=== PATIENT | female | born 1970 | race Caucasian/White ===

== ENCOUNTER 2025-01-28 06:03 | Observation (INO) ==
--- NOTE | 2024-12-22 15:27 | PAT Medication Instructions ---
Medication Instructions Date of Service December 22, 2024 Home Medications acetaminophen 500 mg tablet (Tylenol Extra Strength) 500 mg PO QID PRN Pain cholecalciferol (vitamin D3) 125 mcg (5,000 unit) tablet (Vitamin D3) 125 mcg PO BID gabapentin 300 mg capsule 300 mg PO TID hydrochlorothiazide 12.5 mg tablet 12.5 mg PO QAM ibuprofen 600 mg tablet 600 mg PO QID PRN Pain levothyroxine 112 mcg tablet 112 mcg PO QAM losartan 50 mg tablet 50 mg PO QAM meloxicam 7.5 mg tablet 7.5 mg PO BID tramadol 50 mg tablet 50 mg PO DAILY PRN Pain MEDICATION INSTRUCTIONS: ASK your surgeon for instructions meloxicam 7.5 mg tablet 7.5 mg PO BID ibuprofen 600 mg tablet 600 mg PO QID PRN Pain DO NOT take the morning of surgery cholecalciferol (vitamin D3) 125 mcg (5,000 unit) tablet (Vitamin D3) 125 mcg PO BID losartan 50 mg tablet 50 mg PO QAM hydrochlorothiazide 12.5 mg tablet 12.5 mg PO QAM Take morning of surgery With a small sip of water, OTHERWISE NOTHING TO EAT OR DRINK AFTER MIDNIGHT: acetaminophen 500 mg tablet (Tylenol Extra Strength) 500 mg PO QID PRN Pain gabapentin 300 mg capsule 300 mg PO TID levothyroxine 112 mcg tablet 112 mcg PO QAM tramadol 50 mg tablet 50 mg PO DAILY PRN Pain Take evening before surgery acetaminophen 500 mg tablet (Tylenol Extra Strength) 500 mg PO QID PRN Pain cholecalciferol (vitamin D3) 125 mcg (5,000 unit) tablet (Vitamin D3) 125 mcg PO BID gabapentin 300 mg capsule 300 mg PO TID tramadol 50 mg tablet 50 mg PO DAILY PRN Pain Other Notes If you have any questions please call us at [phone] or [phone] or [phone] or [phone]
--- NOTE | 2025-01-05 10:58 | Anesthesiology Consultation ---
Date of Service January 05, 2025 Assessment & Plan (1) Encounter for pre-operative examination: - Infectious disease screening: Per assessment on 01/05/25- No known recent infectious disease contacts or current infectious disease symptoms. - Possible difficult intubation: based on exam - Pending: * Preop labs: received message that patient's preop coags hemolyzed. Patient aware- requesting having preop coags done at [facility] outpatient labs- requests PAT fax coags order to both [facility] outpatient lab and PCP (Dr. Peguero). PAT loan secretary made aware/faxed orders per patient request. Awaiting surgeon-ordered preop coags (TBD [facility], 01/06). * Awaiting surgeon-ordered PCP preop evaluation (Dr. Peguero, appt done 01/06). Chart Review Chart Review: Patient seen in Pre Admission Testing Teaching & Discussion Pre-Anesthesia Teaching/Discussion Notes: Instructed NPO after midnight before surgery,except medications with 15 cc of water. Medication instructions provided according to the PAT guidelines. History Surgery Operation Date: 01/28/25 11:05 Proposed Procedures p C3-C5 Anterior Cervical Discectomy and Fusion, with Spinal Cord Monitoring - Neo Mccatrhy, Height/Weight Height: 5 ft 2 in Weight: 101.8 kg Allergies Allergy/AdvReac Type Severity Reaction Status Date / Time No Known Allergies Allergy Verified 12/22/24 11:38 Medications Home Medications Medication Instructions Recorded Confirmed Last Taken acetaminophen 500 mg tablet 500 mg PO QID PRN Pain 12/22/24 12/22/24 Unknown (Tylenol Extra Strength) cholecalciferol (vitamin D3) 125 125 mcg PO BID 12/22/24 12/22/24 Unknown mcg (5,000 unit) tablet (Vitamin D3) gabapentin 300 mg capsule 300 mg PO TID 12/22/24 12/22/24 Unknown hydrochlorothiazide 12.5 mg tablet 12.5 mg PO QAM 12/22/24 12/22/24 Unknown ibuprofen 600 mg tablet 600 mg PO QID PRN Pain 12/22/24 12/22/24 Unknown levothyroxine 112 mcg tablet 112 mcg PO QAM 12/22/24 12/22/24 Unknown losartan 50 mg tablet 50 mg PO QAM 12/22/24 12/22/24 Unknown meloxicam 7.5 mg tablet 7.5 mg PO BID 12/22/24 12/22/24 Unknown tramadol 50 mg tablet 50 mg PO DAILY PRN Pain 12/22/24 12/22/24 Unknown Past Medical History Medical History Cervical radiculopathy HTN (hypertension) Hypothyroidism Migraines Morbid obesity Sleep apnea No device Exercise / Class Metabolic Activity II 4-5 Yardwork/Stairs/Walk up hill (one FS: No CP, no SOB) Past Surgical History Surgical History History of carpal tunnel release of both wrists History of lumbar surgery hardware present Hx of cholecystectomy Hx of colonoscopy Hx of hysterectomy Past Anesthesia History No Hx of Anesthesia Complications and No Family Hx of Anesthesia Complications History of PONV No Hx of PONV and No Hx of Motion Sickness Social History Smoking Status: Never smoker Do You Dip or Chew Tobacco: No Hx Alcohol Use: No Hx Substance Use: No substance use type: does not use Review of Systems Patient denies chest pain, shortness of breath, dyspnea on exertion, fever, chills, cough, wheezing, palpitations. Physical Exam Vital Signs BP 133/88 P 83 TEMP 98.4 SP02 97%RA RESP 18 Physical Full cervical extension range of motion. Full TMJ range of motion. TMD 3 finger breaths Mallampati Score IV (small oral opening) Dentition: missing molar Lungs: clear throughout to auscultation Cardiac: regular rate and rhythm, no murmurs noted Spine: normal Carotid arteries: negative bruit Extremities: no LE edema Lab Results Anesthesia Preop Results Results Anesthesia Widget: WBC 7.49 K/ul (4.8-10.8) 01/05/25 Hgb 13.3 g/dl (12.0-16.0) 01/05/25 Hct 41.8 % (37.0-47.0) 01/05/25 Plt 193 K/uL (130-400) 01/05/25 Na 139 mmol/L (136-145) 01/05/25 K 4.3 mmol/L (3.5-5.1) 01/05/25 Cl 105 mmol/L (98-107) 01/05/25 CO2 28 mmol/L (21-32) 01/05/25 BUN 29 mg/dl (6-23) H 01/05/25 Creat 1.06 mg/dl (0.6-1.2) 01/05/25 Glucose Level 101 mg/dl (70-99(Fasting)) H 01/05/25 Urine Color Yellow 01/05/25 Urine Appearance Clear (Clear) 01/05/25 Urine pH 5.0 (4.5-7.5) 01/05/25 Urine Specific [place] 1.023 (1.000-1.030) 01/05/25 Urine Protein Negative (Negative) 01/05/25 Urine Glucose (UA) Negative (Negative) 01/05/25 Urine Ketones Trace (Negative) H 01/05/25 Urine Blood Negative (Negative) 01/05/25 Urine Nitrite Negative (Negative) 01/05/25 Urine Bilirubin Negative (Negative) 01/05/25 Urine Urobilinogen Negative (Negative) 01/05/25 Urine Leukocyte Esterase Negative (Negative) 01/05/25 Blood Type A Positive 01/05/25 Antibody Screen NEGATIVE 01/05/25 Testing Electrocardiogram Date: 01/05/25 Findings: + NSR @ (76) Chest X-Ray Date: 01/05/25 FINDINGS: The cardiac silhouette measures within normal limits. The hilar and mediastinal structures appear unremarkable. The lungs are clear. The osseous structures appear grossly intact. Surgical clips in the right upper abdominal quadrant. IMPRESSION: No evidence of acute cardiopulmonary disease, communicable disease or tuberculosis.
[2025-01-28] MEDS: LR 15ML/HR IV SCH (06:40)
[2025-01-28] MEDS: LR 60ML/HR IV SCH (06:40)
[2025-01-28] MEDS: CeleBREX 200 MG CAP PO SCH (06:41)
[2025-01-28] MEDS: ACETAMINOPHEN 500 MG TAB PO SCH (06:41)
[2025-01-28] MEDS: GABAPENTIN 900 MG DOSE PO SCH (06:41)
[2025-01-28] MEDS ORDERED: ONDANSETRON INJ 2 MG/ML 2 ML VIAL ONE ×2 (07:06→09:21)
[2025-01-28] MEDS ORDERED: LIDOCAINE 2% 2 ML VIAL/AMP(20MG/ML) INFIL ONE (07:06)
[2025-01-28] MEDS ORDERED: DEXAMETHASONE SOD INJ 4 MG/ML VIAL ONE (07:06)
[2025-01-28] MEDS ORDERED: PROPOFOL IV EMULSION 10 MG/ML 20 ML VIAL IV ONE ×2 (07:06)
[2025-01-28] MEDS ORDERED: fentaNYL citrate PF 100 MCG/2 ML VIAL ONE (07:07)
[2025-01-28] MEDS ORDERED: MIDAZOLAM HCL 1 MG/ML 2ML VIAL ONE (07:07)
[2025-01-28] MEDS ORDERED: PROPOFOL IV EMULSION 10 MG/ML 100 ML VIAL IV ONE (07:08)
[2025-01-28] MEDS ORDERED: ROCURONIUM BROMIDE 10 MG/ML 5 ML VIAL IV ONE (07:08)
[2025-01-28] MEDS ORDERED: LARYING-O-JET KIT (LTA) ONE (07:08)
[2025-01-28] MEDS ORDERED: SUCCINYLCHOLINE CHLORIDE 20 MG/ML 10 ML VIAL IV ONE (07:19)
[2025-01-28] MEDS ORDERED: LABETALOL HCL IV 5 MG/ML 20ML IV PRN (07:20)
[2025-01-28] MEDS ORDERED: ePHEDrine sulfate 50 MG/ML AMP IV PRN (07:20)
[2025-01-28] MEDS ORDERED: FLUMAZENIL 0.1 MG/1 ML 10 ML VIAL IV PRN (07:20)
[2025-01-28] MEDS ORDERED: ONDANSETRON INJ 2 MG/ML 2 ML VIAL IV PRN (07:20)
[2025-01-28] MEDS ORDERED: NALOXONE HCL 0.4 MG/1 ML VIAL/CARP IV PRN ×2 (07:20→12:42)
[2025-01-28] MEDS ORDERED: ATROPINE SULFATE 0.1 MG/ML 10ML SYR IV PRN (07:20)
[2025-01-28] MEDS ORDERED: PROMETHAZINE HCL 6.25 MG in SODIUM CHLORIDE 0.9% 50 ML IV PRN (07:20)
--- NOTE | 2025-01-28 07:30 | History & Physical Report ---
Date of Service January 28, 2025 Assessment & Plan (1) Cervical stenosis of spinal canal: Plan: Anterior cervical discectomy and fusion C3-C5 History of Present Illness Chief Complaint: Neck and arm pain Primary Care Provider: Paulino Peguero DO This is a 54-year-old female presents chronic persistent neck and arm pain and failing course of nonoperative care is here for surgical invention. Allergies Allergy/AdvReac Type Severity Reaction Status Date / Time No Known Allergies Allergy Verified 01/28/25 06:29 Home Medications Medication Instructions Recorded Confirmed Type acetaminophen 500 mg tablet 500 mg PO QID PRN Pain 12/22/24 01/28/25 History (Tylenol Extra Strength) cholecalciferol (vitamin D3) 125 125 mcg PO BID 12/22/24 01/28/25 History mcg (5,000 unit) tablet (Vitamin D3) gabapentin 300 mg capsule 300 mg PO TID 12/22/24 01/28/25 History hydrochlorothiazide 12.5 mg tablet 12.5 mg PO QAM 12/22/24 01/28/25 History ibuprofen 600 mg tablet 600 mg PO QID PRN Pain 12/22/24 01/28/25 History levothyroxine 112 mcg tablet 112 mcg PO QAM 12/22/24 01/28/25 History losartan 50 mg tablet 50 mg PO QAM 12/22/24 01/28/25 History meloxicam 7.5 mg tablet 7.5 mg PO BID 12/22/24 01/28/25 History tramadol 50 mg tablet 50 mg PO DAILY PRN Pain 12/22/24 01/28/25 History Past Med/Surg History Problem List (Updated 01/28/25 @ 07:30 by Neo Mccarthy DO) Cervical stenosis of spinal canal Encounter for pre-operative examination Medical History Cervical radiculopathy HTN (hypertension) Hypothyroidism Migraines Morbid obesity Sleep apnea No device Surgical History History of carpal tunnel release of both wrists History of lumbar surgery hardware present Hx of cholecystectomy Hx of colonoscopy Hx of hysterectomy Social History Smoking Status: Never smoker Second Hand Exposure: No; Do You Dip or Chew Tobacco: No; Tobacco Cessation Education Requested by Patient: No Hx Alcohol Use: No Hx Substance Use: No Preferred Language: Portuguese Communication Ability: Effective Office Coordinator Required: No Beliefs That Will Affect Care: None Current Living Situation: Spouse Other Information That Helps Us Care for You: No Feels Safe at Home: Yes Safety Concerns: Feels Safe At This Time Assistive Devices: Glasses Physical Exam Physical Exam: Patient is alert and oriented Heart regular rhythm Lungs clear Results & Data Results & Data Vital Signs (Past 12 Hours) Vital Signs Temp Pulse Resp BP Pulse Ox O2 Del Method 01/28/25 06:31 36.6 C 88 20 154/102 H 96 Room Air
--- NOTE | 2025-01-28 07:30 | History & Physical Bridge Note ---
Date of Service January 28, 2025 History & Physical Bridge Note I have examined the patient, reviewed the History & Physical and in the interval since the performance of the History & Physical I have noted the following changes of clinical significance: no changes noted
[2025-01-28] MEDS ORDERED: HYDROmorphone INJ 2 MG/ML SYR/VIAL ONE (07:58)
[2025-01-28] MEDS ORDERED: SODIUM CHLORIDE 0.9% PF INJ 10 ML VIAL ONE (07:58)
[2025-01-28] MEDS ORDERED: PHENYLEPHRINE 100MCG/ML 5ML SYR ONE (08:06)
[2025-01-28] MEDS: ceFAZolin 2000MG 2,000 MG/15 ML SYR IV SCH ×2 (08:24→17:02)
[2025-01-28] MEDS: ceFAZolin 330 MG/ML 1 GM VIAL ONE (08:25)
[2025-01-28] MEDS ORDERED: ePHEDrine sulfate 50 MG/5 ML SYR ONE (08:49)
[2025-01-28] MEDS ORDERED: SUGAMMADEX SODIUM 200 MG/2 ML VIAL IV ONE (08:56)
--- NOTE | 2025-01-28 09:24 | Operative Report ---
Post Operative Report Pre & Post Diagnosis Operation Date: 01/28/25 07:45 Pre-Op Diagnosis: Cervical spondylosis with radiculopathy Morbid obesity Post-Op Diagnosis: Same I identified the patient and participated in the time-out.: Yes Procedure Operation Date: 01/28/25 07:45 Actual Procedures #1 anterior cervical discectomy and bilateral foraminotomies C3-C4 C4-C5. #2 anterior cervical arthrodesis C3-C4 C4-C5. #3 placement of Spira 7 mm cage filled with os design bone graft C3-C4 C4-C5. #4 application of K2 and plate and screws from C3-C5. Surgeon Neo Mccarthy, DO Loan Specialist Cole Stallworth Estimated Blood Loss 20 Findings See Below The patient is 5 foot 2 weighing over 100 kg with a BMI in excess of 40. The patient's body habitus did contribute to significant technical difficulty with positioning exposure and the procedure itself adding these 50% increased operative time. Specimens None Indications This is a 54-year-old female that presents with bumps diagnosis of failing course of nonoperative care is here for surgical invention. Description of Procedure Patient was met with identified informed consent obtained. Patient was then taken to the operative suite underwent intubation placed in supine position the Andre table with head Vasquez nurse head. All bony promises well-padded I suspected to ensure no external precipice spinal. This point the anterior cervical spine was prepped and draped no sterile fashion. The assistance of fluoroscopy identified the see 4 vertebral body and a transverse incision was placed along the right anterior aspect of the cervical spine overlying his region. Blunt dissection with the assistance of bipolar electrocautery is then performed down to and exposing the anterior cervical spine from C3-C5. A self- retaining retractor was placed. Then formed a complete discectomy of C3-C4 out to the uncovertebral joints bilaterally. [place] distraction pins were utilized to assist in visualization. Removed all posterior annular fibers longitudinal ligament bilateral foraminotomies performed. Endplates burred to subcortical bleeding bone and a 7 mm Spira cage filled with os design bone graft tapped in position. I then proceeded to C4-C5. Again discectomy performed to the uncove rtebral notch bilaterally. [place] distracting pins again utilized. Removed all posterior annular fibers longitudinal ligament bilateral foraminotomies were performed. Endplates burred to subcortical bleeding bone and a 7 mm Spira cage filled with os design bone graft tapped in position. Distracting and pressors removed. All anterior osteophytes burred to smooth cortical surface. K2 M plate and screws then applied with the assistance of fluoroscopy. The incision was then [place] irrigated explored to ensure no damage surrounding structures remaining bleeding. 10 round JOHN drain inserted. Incision was then closed with 2 Vicryl the fascia 4 Monocryl for final skin closure. Steri-Strips and sterile dressing placed. Patient waken taken PACU stable condition. Please note spinal cord monitoring was utilized at the procedure no changes noted. Cole Pisano was present at the entire surgeon while the patient positioning complex portion of the surgery and final skin closure. I attest to the content of the Intraoperative Record and any orders documented therein. Any exceptions are noted below.
[2025-01-28] MEDS: FLOSEAL HEMOSTATIC MATRIX 10ML TOP ONE (09:28)
[2025-01-28] MEDS: fentaNYL citrate PF 100 MCG/2 ML VIAL IV PRN (09:53)
--- NOTE | 2025-01-28 10:46 | Anesthesiology Progress Note ---
Date of Service January 28, 2025 Anesthesia Post Procedure Vital Signs Vital Signs: Temp Pulse Pulse Resp BP Pulse Ox O2 Del Method 01/28/25 10:40 80 15 124/74 98 Nasal Cannula 01/28/25 10:30 85 14 140/83 98 Nasal Cannula 01/28/25 10:20 74 13 134/92 98 Oxymask 01/28/25 10:10 76 15 146/67 H 97 Oxymask 01/28/25 10:00 76 17 139/76 100 Oxymask 01/28/25 09:50 88 17 142/97 H 98 Oxymask 01/28/25 09:40 36.8 C 90 17 136/78 100 Oxymask 01/28/25 06:31 36.6 C 88 20 154/102 H 96 Room Air O2 Flow Rate 01/28/25 10:40 4 01/28/25 10:30 4 01/28/25 10:20 5 01/28/25 10:10 5 01/28/25 10:00 5 01/28/25 09:50 7 01/28/25 09:40 7 01/28/25 06:31 Pain Intensity Neck: Pain Intensity: 6 Back: Pain Intensity: 8 Transfer of Care Handoff Completed per policy Notes Mental Status: alert / awake / arousable Patient Amnestic to Procedure: Yes Nausea / Vomiting: adequately controlled Pain: adequately controlled Airway Patency, RR, SpO2: stable & adequate BP & HR: stable & adequate Hydration State: stable & adequate Anesthetic Complications: no major complications apparent
--- NOTE | 2025-01-28 11:03 | Fluoroscopy Report ---
FL cervical 2-3V CLINICAL HISTORY: C3-C5 ACDF COMPARISON STUDY: None pertinent FLUOROSCOPY TIME: 21.9 seconds FLUOROSCOPY IMAGES: 2 EXPOSURE DOSE: 4.54 mGy FINDINGS: Fluoroscopic guidance IMPRESSION: Refer to the procedure report for evaluation based on real-time fluoroscopic observation ACT 112: Negative or not required by law. Electronically signed by: Tawana Paz M.D. 01/28/2025 11:02 AM
[2025-01-28] MEDS: HYDROmorphone INJ 1 MG/ML SYRINGE IV PRN ×2 (11:06→21:43)
[2025-01-28] MEDS ORDERED: SOD PHOSPHATE/SOD BIPHOSPHATE ENEMA 132 ML BTL PR PRN (12:42)
[2025-01-28] MEDS ORDERED: ALUMINUM/MAGNESIUM SUSP 30 ML UDC PO PRN (12:42)
[2025-01-28] MEDS ORDERED: ACETAMINOPHEN 1,000 MG/100 ML VIAL IV PRN (12:42)
[2025-01-28] MEDS ORDERED: diphenhydrAMINE Capsule 25 MG CAP PO PRN (12:42)
[2025-01-28] MEDS ORDERED: PROMETHAZINE 12.5 MG/50.5 ML BAG IV PRN (12:42)
[2025-01-28] MEDS ORDERED: dexAMETHasone 8 MG in SYRINGE 0 ML IV PRN (12:42)
[2025-01-28] MEDS ORDERED: hydrOXYzine HCl 25 MG TAB PO PRN (12:42)
[2025-01-28] MEDS ORDERED: DO NOT ADMINISTER PNEUMOCOCCAL VACCINE PRN (12:42)
[2025-01-28] MEDS ORDERED: ONDANSETRON 4 MG OD TAB PO PRN (12:42)
[2025-01-28] MEDS ORDERED: LORazepam 0.5 MG TAB PO PRN (12:42)
[2025-01-28] MEDS ORDERED: DO NOT ADMINISTER FLU VACCINE PRN (12:42)
[2025-01-28] MEDS ORDERED: LORazepam 2 MG/1 ML VIAL IV PRN (12:42)
[2025-01-28] MEDS ORDERED: RACEPINEPHRINE 2.25% NEBU SOLN 0.5 ML VIAL INH PRN (12:42)
[2025-01-28] MEDS ORDERED: MAGNESIUM HYDROXIDE SUSP 30 ML UDC PO PRN (12:42)
[2025-01-28] MEDS ORDERED: bisacodyL 10 MG SUPP PR PRN (12:42)
[2025-01-28] MEDS ORDERED: ACETAMINOPHEN 500 MG TAB PO PRN (12:42)
[2025-01-28] MEDS ORDERED: METOCLOPRAMIDE HCL INJ 5 MG/ML 2 ML VIAL IV PRN (12:42)
[2025-01-28] MEDS: HYDROmorphone INJ 0.5 MG/0.5 ML SYR IV PRN (12:45)
[2025-01-28] MEDS: HYDROmorphone INJ 0.5 MG/0.5 ML SYR ONE (14:05)
[2025-01-28] MEDS: ONDANSETRON INJ 2 MG/ML 2 ML VIAL IV PRN (14:46)
[2025-01-28] MEDS: GABAPENTIN 300 MG CAP PO SCH (15:21)
[2025-01-28] MEDS: DOCUSATE SODIUM/SENNA 50/8.6MG TAB PO SCH (20:20)
[2025-01-28] MEDS: oxyCODONE HCL IR 5 MG TAB (IMMEDIATE RELEASE) PO PRN (20:20)
[2025-01-28] MEDS: FAMOTIDINE 20 MG TAB PO PRN (23:43)
[2025-01-29] MEDS: LEVOTHYROXINE SODIUM 112 MCG TABLET PO SCH (05:51)
[2025-01-29] MEDS: POLYETHYLENE (MIRALAX) 17 GM PACK PO SCH (06:05)
[2025-01-29] MEDS: hydroCHLOROthiazide 25 MG TAB PO SCH (08:23)
[2025-01-29] MEDS: LOSARTAN POTASSIUM 50 MG TAB PO SCH (08:23)
[2025-01-29] MEDS: dexAMETHasone 6 MG in SYRINGE 0 ML IV SCH (08:24)
[2025-01-29] MEDS: CHOLECALCIFEROL 25 MCG (1000 UNITS) TAB PO SCH (08:24)
[2025-01-29] MEDS: traMADol HCL 50 MG TABLET PO PRN (09:55)
--- NOTE | 2025-01-29 10:42 | Discharge Summary ---
Date of Service January 29, 2025 Admission HPI Per Admitting Provider This is a 54-year-old female presents chronic persistent neck and arm pain and failing course of nonoperative care is here for surgical invention. Principal Diagnosis Cervical spondylosis with radiculopathy Discharge Data Allergies Allergy/AdvReac Type Severity Reaction Status Date / Time No Known Allergies Allergy Verified 01/28/25 06:29 Procedures Performed Operation Date: 01/28/25 07:45 Actual Procedures p C3-C5 Anterior Cervical Discectomy and Fusion, Spinal Cord Monitoring(Not Applicable) - Neo Mccarthy DO Ordered Studies 01/28/25 07:45 [place] cervical 2-3V Routine Hospital Course (1) Cervical stenosis of spinal canal: Patient went anterior cervical segment fusion trial as well as taken to orthopedic for postoperative. Postoperatively she was swallowing well. No hoarseness. Ambulating well. Arm symptoms improved. JOHN drain decreasing. Extra strength testing. Subsidy discharged home. Discharge orders instructions from the chart for further review. Total Time Total Time Spent Total Time Spent (In Minutes): 20 minutes Discharge Plan Discharge Items Patient Disposition: Home - Self-Care Reason For Visit: Cervical Disc Disease, Foraminal Stenosis of Cervi Discharge Diagnosis: Cervical spondylosis with radiculopathy Activity: As commented below Non-emergency contact: Primary Care Provider Call non-emergency contact if: you have any medication questions Follow-up/Referrals: Paulino Peguero DO [Primary Care Provider] - Diet: Regular Addtl Attending Provider Instructions: ACTIVITY RECOMMENDATIONS: SELF CARE INSTRUCTIONS AFTER CERVICAL FUSIONS 1. No smoking. Smoking drastically decreases the chance of a solid fusion. 2. No bending, lifting more than 5 pounds, or twisting (roll like a log when turning in bed). 3. You may shower 3 days after surgery. Thoroughly dry wound. Do not soak in the tub. 4. Cervical collar: Must be worn at all times including sleeping. You may remove the brace only to bath, eat and if you are sitting in a recliner. 5. Please walk as much as you can for exercise. Gradually increase the distance that you walk as your endurance increases. 6. You may return to previous diet. SPECIAL CARE INSTRUCTIONS: VERY IMPORTANT TO READ AND REVIEW A. Do not take any anti-inflammatory medications (i.e. Indocin, Advil, Aspirin, Naprosyn, Aleve, Motrin, etc.) as these may inhibit the chance of a solid fusion. Tylenol is okay to take. B. Your surgical incision has been closed with a cosmetic suture under the skin that will dissolve in about 6 weeks. In 14 days, you can use a pair of clean scissors and cut the suture that is left outside of the skin at the ends of your incision. C. Complications are uncommon, but please contact us if you have any signs or symptoms of: 1. wound infection (fever higher than 102.5 degrees F, redness, separation of wound, drainage, or increasing pain from the incision) 2. blood clots in legs (pain, swelling, redness and warmth in legs) 3. urinary tract infection (fever higher than 102.5 degrees, burning upon urination or increased frequency of urination) 4. nerve problems (inability to walk on your toes or heels, numbness, loss of bowel or bladder control) 5. any other symptoms that concern you. D. Please call the office at if you have any concerns or questions about your operation or recovery. MANAGING PAIN AFTER SPINAL SURGERY 1. Narcotic medication is intended for short-term use and will be provided for surgical pain. Surgical pain usually lasts for a period of 4-6 weeks. Narcotic medication includes Percocet, Vicodin, Darvocet, Tylenol #3 or Lortab. 2. Longer-term pain is more appropriately treated with non-narcotic medication such as Tylenol ES. 3. Muscle spasm is not appropriately treated with narcotics. Muscle relaxers such as Soma, Flexeril or Skelaxin can be used along with Tylenol ES. 4. Remember that we all live with some "aches and pains". This is not unusual or uncommon after an injury or as we get older. 5. We will provide appropriate medication within the normal guidelines of their prescribed use. We will also be very cautious and aware of potential abuse and extended duration of patients' medication needs. 6. Please allow 2-3 days to process refills. Prescriptions will not be mailed but must be picked up at the office. FOLLOW UP VISIT: Keep your scheduled follow-up appointment. Any questions, please call the office at . Pending Studies at Discharge: No Stand-Alone Forms: [employer], Smoking Cessation Medications and DC Order Prescriptions: New tramadol 50 mg tablet 50 mg PO Q6H PRN (Reason: pain, moderate) Qty: 20 0RF oxycodone 5 mg tablet 5 mg PO Q6H PRN (Reason: pain) Qty: 20 0RF Continued losartan 50 mg Tablet 50 mg PO QAM tramadol 50 mg Tablet 50 mg PO DAILY PRN (Reason: Pain) acetaminophen [Tylenol Extra Strength] 500 mg Tablet 500 mg PO QID PRN (Reason: Pain) meloxicam 7.5 mg Tablet 7.5 mg PO BID gabapentin 300 mg Capsule 300 mg PO TID ibuprofen 600 mg Tablet 600 mg PO QID PRN (Reason: Pain) levothyroxine 112 mcg Tablet 112 mcg PO QAM hydrochlorothiazide 12.5 mg Tablet 12.5 mg PO QAM No Action cholecalciferol (vitamin D3) 50 mcg (2,000 unit) Tablet 50 mcg PO DAILY Discharge Orders: Discharge Order (Routine); Ordered 01/29/25 Ordered By: Neo Mccarthy Admission Data Admit Date/Time: 01/28/25 09:27 Attending Provider: Neo Mccarthy Admit Provider: Neo Mccarthy Primary Care Provider: Paulino Peguero
[2025-01-29 11:16] VITALS: BP 131/85; PULSE 78; RESP 14; TEMP 98.1; O2SAT 95
== END 2025-01-29 12:52 | disposition home or self-care (01) ==
LOC: 3E 06:03 → ASU 06:03